=== PATIENT | female | born 1950 | race Caucasian/White ===

== ENCOUNTER 2017-12-01 04:52 | Observation (INO) | payer OTHER ==
[2017-11-12 13:08] VITALS: BMI 47.0
[2017-11-17 07:12] VITALS: BMI 47.0
[2017-11-23 13:52] VITALS: Ht 142.2 cm; Wt 94.8 kg
--- NOTE | 2017-11-23 14:09 | PAT Medication Instructions ---
Service Date Nov 23, 2017. Current Home Medication List Albuterol Hfa (Ventolin Hfa), 1 PUFFS INH Q6H Alosetron HCl (Alosetron Hydrochloride), 1 TAB PO BID Atorvastatin (Lipitor), 40 MG PO QAM Colestipol Hcl (Colestid), 1 GM PO TID Doxycycline Monohydrate (Monodox), 100 MG PO BID Duloxetine HCl (Cymbalta), 1 CAP PO BID Folic Acid (Folvite), 1 MG PO QAM Methotrexate Sodium (Methotrexate), 1 TAB PO QAM Omeprazole (Prilosec), 40 MG PO QAM Sucralfate (Sucralfate), 1 GM PO BID Trazodone Hcl (Trazodone), 100 MG PO HS [Vitamin D], 1,000 INTER.UNIT PO QAM Medication Instructions For Your Scheduled Surgery -Contact your prescriber for instructions: Methotrexate Sodium (Methotrexate), 1 TAB PO QAM - Hold the following medications 24 hours prior to surgery: Colestipol Hcl (Colestid), 1 GM PO TID - Hold the following medications the morning of surgery: Alosetron HCl (Alosetron Hydrochloride), 1 TAB PO BID Folic Acid (Folvite), 1 MG PO QAM Sucralfate (Sucralfate), 1 GM PO BID - Take the following medications the morning of surgery with a sip of water: Albuterol Hfa (Ventolin Hfa), 1 PUFFS INH Q6H (if needed, and bring it with you to the hospital) Atorvastatin (Lipitor), 40 MG PO QAM Doxycycline Monohydrate (Monodox), 100 MG PO BID Duloxetine HCl (Cymbalta), 1 CAP PO BID Omeprazole (Prilosec), 40 MG PO QAM - Take the following medications as scheduled the night before surgery: Albuterol Hfa (Ventolin Hfa), 1 PUFFS INH Q6H Alosetron HCl (Alosetron Hydrochloride), 1 TAB PO BID Doxycycline Monohydrate (Monodox), 100 MG PO BID Duloxetine HCl (Cymbalta), 1 CAP PO BID Sucralfate (Sucralfate), 1 GM PO BID Trazodone Hcl (Trazodone), 100 MG PO HS [Vitamin D], 1,000 INTER.UNIT PO QAM If you have any questions please call us at [phone] or [phone] or [phone]
--- NOTE | 2017-11-23 15:18 | DIAGNOSTIC IMAGING REPORT ---
CERVICAL SPINE 2 OR 3 VIEWS HISTORY: Preoperative evaluation. Rheumatoid arthritis. Pre-op RA; lateral neutral, flexion, extension COMPARISON: None. FINDINGS: The cervical spine is visualized from C1 through the superior endplate of T1. There is no fracture. No subluxation. Congenital/degenerative fusion of C4-C5. Prevertebral soft tissues and the atlantodens interval are intact.. No evidence for subluxation on a positional basis. C1-C2 complex is stable. IMPRESSION: No fracture or subluxation within the cervical spine. Normal positional alignment of the C1-C2 complex. The above report was generated using voice recognition software. It may contain grammatical, syntax or spelling errors. Electronically signed by: Daniel Vu M.D. 11/23/2017 3:16 PM Dictated Date/Time: 11/23/2017 3:16 PM
[2017-11-23 15:39] LABS: CALCIUM 9.2 mg/dl (8.5-10.1); CREATININE 1.09 mg/dl (0.60-1.20); POTASSIUM 4.7 mmol/L (3.5-5.1)
--- NOTE | 2017-11-24 09:42 | History and Physical ---
History & Physical Date of Service Nov 24, 2017. History & Physical DATE OF SURGERY: December 04, 2017. CHIEF COMPLAINT: Right ankle instability x6 or 7 months. HISTORY OF PRESENT ILLNESS: Patient is a pleasant 67-year-old female, who is here today for preoperative history and physical. She is scheduled to have a right ankle arthroscopy with open modified Brostrom procedure with Dr. Lubin on December 04, 2017. Her surgery is scheduled at the [facility]. She has seen Dr. Lubin for evaluation of her right ankle pain that has been ongoing since April of 2017. She states that she was chasing after her dog at that time when she stepped into a hole and had someone sujit and twist in her ankle. Since that time, she has experienced constant and progressive right ankle pain. She feels that her ankle is frequently giving out and very unstable. She wears an ankle stabilizing brace on it at all times. She also uses a cane to assist with ambulation. She states that her pain is achy constantly, and does have intermittent sharpness throughout the day. She is admits to falling because of the pain and instability of her ankle. She denies any numbness or tingling. States, that she occasionally gets some numbness and tingling in both her hands and her feet, but nothing that has worsened since this injury. She denies any other injuries. She states that she initially got some swelling that has pretty much subsided at this point. She is hopeful that the surgery will "get her life back." PAST MEDICAL HISTORY: 1. Rheumatoid arthritis. 2. Sleep apnea with use of a CPAP machine, although she states she does not use it at home. 3. Paresthesias of her hands and occasionally her feet. 4. History of migraines. 5. Spine, neck, and lower back problems. 6. Acid reflux. 7. Obesity. She states that she has difficulty with waking up from anesthesia. Current medications are: 1. Alosetron 0.5 mg 1 tablet p.o. b.i.d.. 2. Cetrizine 10 mg p.o. daily as-needed for allergies. 3. Vitamin D3 of 1000 international units daily. 4. Colestipol 1 gram p.o. t.i.d. 5. Doxycycline monohydrate 100 mg p.o. b.i.d. 6. Duloxetine 20 mg 2 capsules p.o. daily. 7. Folic acid 1 mg p.o. daily. 8. Methotrexate 2.5 mg 6 tablets p.o. q.7 days. She is unsure of what day she takes this. 9. Omeprazole 40 mg p.o. daily. 10. Sucralfate 1 gram p.o. b.i.d. 11. Trazodone 100 mg p.o. q.h.s. 12. Atorvastatin 40 mg daily. ALLERGIES: 1. PENICILLIN, WHICH CAUSES A RASH AND CAUSED HER TO BE SICK. 2. ADHESIVE TAPE. 3. LATEX, WHICH CAUSES A RASH. PAST SURGICAL HISTORY: 1. She has had a spinal fusion. 2. Placement of spinal cord stimulator. 3. Carpal tunnel release, bilateral wrist. 4. Cervical neck fusion. 5. Right total knee arthroplasty. 6. Cholecystectomy. 7. Tonsillectomy. 8. Hysterectomy. 9. Appendectomy. SOCIAL HISTORY: She denies any smoking, tobacco use, alcohol use, or drug use. Family history is positive for cancer and diabetes. REVIEW OF SYSTEMS: She denies any fevers, chills, or flu-like symptoms. She states that she does have a cough occasionally that she has had for a couple weeks that she cannot get rid of. She denies any hospitalizations. She does have shortness of breath, especially with activity. She does have instability of her ankle frequently, especially if she is not wearing the brace. She does use a cane to assist with ambulation. She denies any lightheadedness, dizziness. She occasionally gets some headaches. She denies any chest pain. She does have issues with anesthesia and concerns for anesthesia about not waking up. She states that she does get some abdominal pain with the reflux. Denies any diarrhea or constipation besides when she eats fatty or greasy foods. She denies any urinary symptoms such as frequency burning or foul- smelling urine. PHYSICAL EXAM: General: She is alert and oriented x3. She is in no acute distress. She is a well-dressed, well-nourished female. Height is 4 feet 8 inches, weight is 210 pounds, BMI is 47. HEENT: Head is atraumatic, normocephalic. Eyes, extraocular movements intact. Pupils are equal, round, and reactive to light. Sclerae are normal. Ears, hearing is grossly normal. TMs are clear with normal light reflex. Nose, nares are patent bilaterally. Normal turbinates. Throat, oropharynx clear. Mucous membranes moist. Good dentition with some hardware. Uvula midline. Neck is supple. No lymphadenopathy. No carotid bruits appreciated. Tolerates range of motion of her neck, and nontender to palpation of her cervical spine. Heart is regular rate and rhythm. Normal S1, S2. No murmurs appreciated. Lungs are clear to auscultation bilaterally. No adventitious sounds. Abdomen is obese, soft, nontender, nondistended. Bowel sounds heard in all 4 quadrants. Exam of her right ankle today shows some mild swelling over the lateral aspect of the ankle and no deformity appreciated. Sensation of her right ankle is intact throughout. Dorsalis pedis and posterior tibial pulses are 2+. Brisk capillary refills. She has full dorsiflexion and plantarflexion, and pain with resisted eversion and inversion of the foot. There is gross ligamentous laxity noted on with the anterior drawer test. She does also have discomfort when performing the anterior drawer. There is tenderness to palpation over the ATFL as well as the CFL. The patient has an antalgic gait favoring her right lower extremity. RADIOLOGY IMAGES: X-ray of the right ankle demonstrate no acute fracture or dislocation. Ankle mortise is well maintained. There is a Chika deformity noted over the posterior calcaneus. There is a plantar bone spur noted over the anterior aspect of the calcaneus as well. No other osseous abnormalities noted. IMPRESSION: Chronic right ankle pain and instability. PLAN: Patient is scheduled for right ankle arthroscopy with open modified Brostrom procedure with Dr. Lubin on December 04, 2017. Risks and complications of surgery were explained to the patient and include, but are not limited to, infection, pain, bleeding, scarring, nerve and blood vessel damage, wound problems, weakness, stiffness, incomplete relief of symptoms, heart attack, blood clots, embolisms, heart attack, stroke, and . All questions were answered and informed consent was obtained by Dr. Lubin. She will have preadmission testing later this week in which we will obtain a preoperative EKG prior to surgery. We will also obtain preoperative medical clearance from her family physician, MALIK De Dios. She was instructed on the usage of CHG cloths prior to surgery. She was given a prescription for Grethel for postoperative pain control. This will be done as an outpatient procedure. She was given a prescription for a walker after surgery. I think that would be the most beneficial for her. She may have also a postoperative boot, but I think she would do best with a walker over crutches. Postoperative course was discussed briefly. She will follow up appropriately in Physical Therapy after surgery as well as in 10-14 days after surgery with Dr. Lubin. All questions were answered today, and they know to call with any further problems, questions , or concerns.
[2017-12-01] VITALS (11 sets, daily range): BP systolic 112–143; BP diastolic 61–83; PULSE 96–109; TEMP 36.5–36.6; O2SAT 90–96
[~2017-12-01] VITALS: Ht 142.2 cm; Wt 94.8 kg
[~2017-12-01 04:52] MED LIST: ATOR-24 PO; COLE1TAB PO; DOXY100C76 PO; DULO-24 PO; FOLI1TAB8 PO; METH2.5T PO; OMEP40CA41 PO; SUCR1TAB PO; TRAZ100T29 PO; VITAMIN D PO; VNTHFA/IN INH; [UNRECOGNIZED DRUG - CODE] PO
[2017-12-01] MEDS ORDERED: CLINDAMYCIN 600 MG/54 ML D5W IV SCH (06:00)
[2017-12-01] MEDS ORDERED: CLINDAMYCIN IV 600 MG in DEXTROSE 5% 50ML 50 ML IV ONE (06:00)
[2017-12-01] MEDS ORDERED: LACTATED RINGER'S 1000ML 1,000 ML IV SCH (06:00)
[2017-12-01] MEDS ORDERED: ROCURONIUM BROMIDE 10 MG/ML 5 ML VIAL IV ONE (06:39)
[2017-12-01] MEDS ORDERED: ONDANSETRON INJ 2 MG/ML 2 ML VIAL ONE (06:39)
[2017-12-01] MEDS ORDERED: PROPOFOL IV EMULSION 10 MG/ML 20 ML VIAL IV ONE ×2 (06:39→09:51)
[2017-12-01] MEDS ORDERED: DEXAMETHASONE SOD INJ 4 MG/ML VIAL ONE ×2 (06:39→07:46)
[2017-12-01] MEDS ORDERED: FENTANYL CITRATE INJ 50 MCG/1 ML 2 ML VIAL ONE ×2 (06:39→10:02)
[2017-12-01] MEDS ORDERED: LIDOCAINE HCL 2% 2 ML VIAL (20MG/ML) ONE (06:39)
[2017-12-01] MEDS ORDERED: MIDAZOLAM HCL 1 MG/ML 2ML VIAL ONE ×2 (06:40)
[2017-12-01] MEDS ORDERED: BUPIVACAINE/EPINEPHRINE 0.5% MPF 1:200,000 10 ML VIAL ONE (06:40)
[2017-12-01] MEDS ORDERED: ROPIVACAINE 0.5% 5 MG/ML 30 ML VIAL ONE (06:40)
--- NOTE | 2017-12-01 06:44 | History & Physical Bridge Note ---
H&P Re-Evaluation Bridge Note: I have examined the patient, reviewed the History & Physical and in the interval since the performance of the History & Physical I have noted the following changes of clinical significance: No changes noted. Surgery Moved to 12/01/17 up at the hospital due to anesthesia concerns and BMI.
[2017-12-01] MEDS ORDERED: HYDR-5688 PO (06:46)
[2017-12-01] MEDS ORDERED: EpINEphrine HCL INJ 1 MG/ML 1ML SYRINGE ONE (07:06)
[2017-12-01] MEDS ORDERED: BUPIVACAINE 0.5 % 5 MG/1 ML MPF 30ML VIAL ONE (07:06)
[2017-12-01] MEDS ORDERED: LIDOCAINE/EPINEPHRINE 1% 20 ML VIAL ONE (07:06)
[2017-12-01] MEDS ORDERED: SUCCINYLCHOLINE CHLORIDE 20 MG/ML 10 ML VIAL IV ONE (08:14)
[2017-12-01] MEDS ORDERED: ATROPINE SULFATE 0.1 MG/ML 5ML SYR IV PRN (08:30)
[2017-12-01] MEDS ORDERED: EpHEDrine SULFATE INJ 50 MG/ML AMP IV PRN (08:30)
[2017-12-01] MEDS ORDERED: HYDROmorphone INJ 1 MG/ML SYR IV PRN (08:30)
[2017-12-01] MEDS ORDERED: FENTANYL CITRATE INJ 50 MCG/1 ML 2 ML VIAL IV PRN (08:30)
[2017-12-01] MEDS ORDERED: ONDANSETRON INJ 2 MG/ML 2 ML VIAL IV PRN ×3 (08:30→14:15)
[2017-12-01] MEDS ORDERED: NEOSTIGMINE METHYLSULFATE 5 MG/5 ML SYR ONE (08:41)
--- NOTE | 2017-12-01 09:51 | [facility] Post Operative Brief Note ---
Immediate Operative Summary Operative Date Dec 01, 2017. Pre-Operative Diagnosis Chronic right ankle pain and instability Post-Operative Diagnosis Chronic Right Ankle Pain and Instability, Synovitis, Chondromalacia of Talus Procedure(s) Performed 1) Right Ankle Open Modified Brostrom Procedure with Internal Brace. 2) Right Ankle Arthroscopy with Extensive Debridement. 3) Right Ankle Arthroscopy with Chondroplasty. 4) Exam under anesthesia. Surgeon Dr. Yordan Lubin Rv Detailer Surgeon(s) Dr. Raghu Fowler Estimated Blood Loss 7ml Findings Consistent with Post-Op Diagnosis Fluids (cc crystalloids) 1200 Specimens none per surgeon Drains None Anesthesia Type General Complication(s) none Disposition Disposition: Recovery Room / PACU (Stable)
[2017-12-01] MEDS ORDERED: ESMOLOL HCL 10 MG/ML 10 ML VIAL ONE (09:55)
--- NOTE | 2017-12-01 09:56 | Discharge Instructions ---
Discharge Instructions Date of Service Dec 01, 2017. Admission Reason for Admission: Right Ankle Instability Discharge Discharge Diagnosis / Problem: Status post right ankle Arthroscopy, lateral ankle stabilization Discharge Goals Goal(s): Decrease discomfort, Improve function, Increase independence Activity Recommendations Activity Limitations: per Instructions/Follow-up section May Resume Sexual Activity: when tolerated Shower/Bathe: may shower/bathe in 3 days Driving or Machine Use: Not while on Narcotics and in boot Weightbearing Status: Right toe touch . Instructions / Follow-Up Instructions / Follow-Up Dr. Lubin 12/17/17 @ 10:45am. PT 12/07/17 @ 10 am. Current Hospital Diet Patient's current hospital diet: Regular Diet Discharge Diet Recommended Diet: Regular Diet Procedures Procedures Performed: 1) Right Ankle Open Modified Brostrom Procedure with Internal Brace. 2) Right Ankle Arthroscopy with Extensive Debridement. 3) Right Ankle Arthroscopy with Chondroplasty. 4) Exam under anesthesia. Pending Studies Studies pending at discharge: no Medical Emergencies . Who to Call and When: Medical Emergencies: If at any time you feel your situation is an emergency, please call 911 immediately. . Non-Emergent Contact Non-Emergency issues call your: Urologist Call Non-Emergent contact if: temperature is above 101.5, your pain is not controlled, wound has increased drainage, wound has increased redness . "Provider Documentation" section prepared by Yordan Lubin. .
--- NOTE | 2017-12-01 09:57 | [facility] Operative Report ---
Operative Report Operative Date Dec 01, 2017. Pre-Operative Diagnosis Chronic right ankle pain and instability Post-Operative Diagnosis Chronic Right Ankle Pain and Instability, Synovitis, Chondromalacia of Talus Procedure(s) Performed 1) Right Ankle Open Modified Brostrom Procedure with Internal Brace. 2) Right Ankle Arthroscopy with Extensive Debridement. 3) Right Ankle Arthroscopy with Chondroplasty. 4) Exam under anesthesia. Surgeon Dr. Yordan Lubin Chip Machine Operator Surgeon(s) Dr. Raghu Fowler Estimated Blood Loss 7ml Findings Significant synovitis right ankle, medial gutter, lateral gutter, anterior gutter, posterior capsule. Outerbridge Type IV changes medial Talar dome 7 x 7 mm. Attenuation ATFL with central split tear. Anterior drawer testing 2-3 mm anterior translation with soft end point. After procedure no anterior translation and firm end point. Fluids 1200 Specimens none per surgeon Drains None Anesthesia Type General Complication(s) none Disposition Recovery Room / PACU (Stable) Indications The patient is a 67-year-old female with long standing chronic right ankle pain and instability, who has CT scan indicating medial Talar dome lesion and lateral ligament injury that has failed conservative treatment. After a lengthy discussion with the patient regarding my above clinical findings as well as their treatment options of continued conservative management versus surgical intervention, they have elected to proceed with surgery. The patient wished to proceed with an ankle arthroscopy with debridement. The risks of procedure were discussed and include but not limited to: Infection, bleeding, nerve damage, continued pain, progression of arthritis, decreased level of activity, failure of the repair, possible need for repeat surgery, and deep vein thrombosis. The patient understood all these instructions and explanations all her questions were satisfactorily addressed. They wish to proceed with surgery and the informed consent was signed. Description of Procedure The patient was taken to the operating placed supine on the operating table. Following induction by anesthesia a multidisciplinary timeout was performed identifying the right lower extremity as the correct and operative limb. A bump was placed under the ipsilateral hip and the right lower extremity was placed in a well leg kim. The patient was prepped and draped in the usual orthopedic sterile fashion. All bony landmarks, as well as the tibialis anterior, and the superficial peroneal nerve branches were identified and marked as well as the planned anteromedial and anterolateral portals, as well as the lateral hockey stick incision. The ankle joint line was also marked. The planned incisions and a ring block of the Sural, superficial and deep peroneal nerves were injected with a 50-50 mixture of 1% lidocaine with epi and half percent Marcaine plain for a total of 20 cc. A spinal needle was placed into the ankle joint through the anteromedial portal and the joint was insufflated with 20 cc of normal saline. The anteromedial portal was created first with the milena and spread technique. There was appropriate backflow noted. A 2.7 mm 30 scope was introduced. Initially there was significant synovitis encountered anteriorly, however this was noted throughout the lateral gutter, anteriorly as well as in the medial gutter, and posterior capsule. This was debrided with mechanical shaver as it was encountered. There was also noted significant injury to the articular cartilage of the Talus anteromedially. There were no loose bodies. The anterolateral portal was created under direct visualization, this was initially used as the working portal and then the portals were switched, to allow removal of the synovitis. The loose articular cartilage was removed with mechanical shaver and curette. The ankle was copiously irrigated. Any excessive fluid was then evacuated from the ankle. At this point our attention was drawn to the repair of the lateral ligaments. The traction was removed as well as the well leg kim. A 6 cm Hockey Stick incision was made to expose the fibula and extensor retinaculum. 2mm of extensor retinaculum was elevated from the Fibula. An arthrotomy was performed. The ATFL was identified and the remaining fibers were also released. The Peroneal tendons were protected throughout. The CFL was intact. A FiberTak was placed anteriorly and inferiorly in the standard fashion in the Fibula. Next a 4.75 mm Swivelock with FiberTapes was placed at the insertion of the ATFL on the Talus in the standard fashion. The ATFL was repaired to the Fibula with the ankle in neutral using the sutures from the FiberTak in a horizontal mattress fashion. The FiberTapes were then placed in a 3.5 mm Swivelock which was placed between the 2 FiberTaks, again with the ankle in neutral and care was taken to not overtighten. The FiberTapes were cut short. The remaining Sutures from the FiberTaks were passed through the retinaculum completing the modified Brostrom, embrocating the extensor retinaculum in a pants over vest fashion. Anterior drawer testing was now stable. The skin was closed with 3-0 Monacryl and Dermabond. This was covered with Sterri strips, 4 x 4's, ABDs, sterile cast padding, Posterior splint in neutral , and an Lm bandage. The sponge and needle counts were correct. Patient was awakened and taken to the recovery room in stable condition. POSTOPERATIVE INSTRUCTIONS: The patient will be allowed non-weightbearing until she obtains cam boot and will then be TTWB for 3 weeks. They were given pain medicine preoperatively. They will follow-up with Dr. Lubin in 10-15 days. They will start PT. Addendum: There were concerns post-operatively by anesthesia about the patient' s low O2 saturation and she will be admitted for observation. I attest to the content of the Intraoperative Record and any orders documented therein. Any exceptions are noted below.
[2017-12-01] MEDS ORDERED: MoRPHine SULFATE 2 MG/ML CARP IV PRN (10:00)
[2017-12-01] MEDS ORDERED: MoRPHine SULFATE 4 MG/ML 1 ML CARP\\VIAL IV PRN (10:00)
[2017-12-01] MEDS ORDERED: OXYCODONE/ACETAMINOPHEN 5-325 TAB PO PRN (10:00)
[2017-12-01] MEDS ORDERED: METOPROLOL TARTRATE 1 MG/ML VIAL ONE (11:42)
[2017-12-01] MEDS ORDERED: NURSING VERBAL MED ORDER ONE (12:00)
[2017-12-01] MEDS ORDERED: ALBUT/IPRATROP 3MG/0.5MG NEB 3 ML VIAL INH ONE (12:15)
[2017-12-01] MEDS ORDERED: ACETAMINOPHEN 325 MG TAB PO PRN (14:15)
[2017-12-01] MEDS ORDERED: ALUMINUM/MAGNESIUM/SIMETH (MAALOX MAX) 30 ML UDC PO PRN (14:15)
[2017-12-01] MEDS ORDERED: MAGNESIUM HYDROXIDE SUSP 30 ML UDC PO PRN (14:15)
--- NOTE | 2017-12-01 14:33 | Medical Consult ---
Consultation Date of Consultation: Dec 01, 2017. Attending Physician: Yordan Lubin MD Reason for Consultation: Post-Operative Management History of Present Illness Ms. Murphy is a 67 y/o female with PMHx of RA on Methotrexate, SAI, COPD/Asthma, and GERD who is S/P R ankle repair on 12/01. Surgery was unremarkable however while in recovery patient was noted to be difficult to arouse after surgery with noted hypoxia of 84%. Patient reports she was slow to come out of anesthesia on previous surgeries as well. Patient was diagnosed with SAI after a sleep study and was prescribed CPAP. She reports that she has not used it because it is broken and would be interested in getting a new one. Patient was previously followed by a professor of geography but currently does not see them. She states she was diagnosed with COPD in the past but denies H/O smoking. States he and parents smoked excessively and had a lot of second hand exposures. She states she only utilizes an Albuterol inhaler taking this twice a day. She recently had influenza approx. 1 month ago and has had intermittent URIs since. States she believes she is on Doxy for respiratory coverage but states she is not very good about knowing what medications she is one and her daughter assists with this. Patient did have some dyspnea with ambulating from bedside toilet to bed but quickly resolved. She is on 2L NC and saturating at 95 % currently. Airways are clear with appropriate aeration and no wheezing. No stridor or pharyngeal edema noted. Past Medical/Surgical History 1. Rheumatoid Arthritis 2. SAI - supposed to be on CPAP 3. GERD 4. COPD/Asthma 5. S/P Spinal Surgery 6. S/P Spinal Cord Stimulator 7. S/P R TKA 8. S/P Tonsillectomy 9. S/P Cholecystectomy 10. S/P Appendectomy 11. S/P Hysterectomy Family History Cancer Diabetes mellitus Social History Smoking Status: Never Smoker Smokeless Tobacco Use: No Alcohol Use: none Drug Use: none Marital Status: Housing Status: lives with family Allergies Coded Allergies: Flu Virus Vaccine (Verified Allergy, Unknown, N/V/HIVES, 12/01/17) Latex (Verified Allergy, Unknown, RASH, 12/01/17) Penicillins (Verified Allergy, Unknown, HIVES, 12/01/17) Pneumococcal Vaccine (Verified Allergy, Unknown, N/V/HIVES, 12/01/17) Current Inpatient Medications Current Inpatient Medications Medications (Trade) Dose Ordered Sig/Alex Route Start Time Stop Time Status Last Admin Dose Admin Lactated Ringer's 1,000 ml @ 15 mls/hr Q24H IV 12/01/17 06:00 12/02/17 05:59 12/01/17 06:04 15 MLS/HR Morphine Sulfate (MoRPHine SULFATE INJ) 2 mg Q2H PRN IV 12/01/17 10:00 12/15/17 09:59 Morphine Sulfate (MoRPHine SULFATE INJ) 4 mg Q2H PRN IV 12/01/17 10:00 12/15/17 09:59 Oxycodone/ Acetaminophen (Percocet 5-325mg Tab) 1-2 TABLETS 1 TABLET ... Q6H PRN PO 12/01/17 10:00 12/15/17 09:59 Ondansetron HCl (Zofran Inj) 4 mg Q4H PRN IV 12/01/17 10:00 12/31/17 09:59 Review of Systems Constitutional: No fever, No chills ENT: + problem reported (hoarseness after surgery), No nasal symptoms, No sore throat, No trouble swallowing Respiratory: + cough, No sputum, No wheezing, No shortness of breath, No hemoptysis Cardiovascular: No chest pain, No palpitations Abdomen: No pain, No nausea, No vomiting, No diarrhea, No constipation Musculoskeletal: No joint pain, No swelling, No calf pain Hematologic / Lymphatic: No abnormal bleeding/bruising Integumentary: No rash Physical Exam Date Time Temp Pulse Resp B/P (MAP) Pulse Ox O2 Delivery O2 Flow Rate FiO2 12/01/17 13:15 36.6 96 22 127/61 96 Nasal Cannula 2 12/01/17 12:45 36.6 99 22 128/63 94 Nasal Cannula 2 12/01/17 12:15 36.6 98 22 112/65 92 Nasal Cannula 2 12/01/17 12:05 36.0 94 27 134/70 95 Nasal Cannula 1 12/01/17 12:02 89 22 84 12/01/17 12:02 89 22 12/01/17 12:01 119/63 12/01/17 11:57 87 24 90 12/01/17 11:57 87 24 3/20/18 11:56 120/65 3/20/18 11:52 26 3/20/18 11:52 90 26 3/20/18 11:51 130/72 3/20/18 11:47 90 24 3/20/18 11:47 91 24 96 3/20/18 11:46 125/77 3/20/18 11:45 102 18 91 Nasal Cannula 0.5 3/20/18 11:43 101 105/76 3/20/18 11:42 106 28 3/20/18 11:42 100 28 3/20/18 11:41 105/76 3/20/18 11:37 104 28 89 3/20/18 11:37 106 28 3/20/18 11:36 109/72 3/20/18 11:32 103 21 83 3/20/18 11:32 104 21 3/20/18 11:31 126/59 3/20/18 11:27 101 29 90 3/20/18 11:27 102 29 3/20/18 11:26 117/75 3/20/18 11:22 101 28 90 3/20/18 11:22 102 28 3/20/18 11:21 125/71 3/20/18 11:17 100 26 3/20/18 11:17 100 26 91 3/20/18 11:16 122/71 3/20/18 11:12 99 24 3/20/18 11:12 98 24 93 3/20/18 11:11 130/70 3/20/18 11:07 102 28 92 3/20/18 11:07 102 28 3/20/18 11:06 109/85 3/20/18 11:02 105 24 3/20/18 11:02 105 24 95 3/20/18 11:01 134/80 3/20/18 10:57 110 24 3/20/18 10:57 110 24 98 3/20/18 10:56 163/84 3/20/18 10:52 107 24 3/20/18 10:52 106 24 96 3/20/18 10:51 158/81 3/20/18 10:50 108 24 97 3/20/18 10:50 109 24 3/20/18 10:46 157/87 3/20/18 10:45 108 20 3/20/18 10:45 108 20 95 3/20/18 10:41 140/87 12/01/17 10:40 104 24 12/01/17 10:40 104 24 96 12/01/17 10:36 142/75 12/01/17 10:35 95 20 12/01/17 10:35 95 20 94 12/01/17 10:31 148/80 12/01/17 10:30 36.0 110 24 142/75 98 Oxymask 10 12/01/17 05:43 36.5 98 20 143/83 (103) 95 Room Air General Appearance: WD/WN, no apparent distress, + obese Head: normocephalic, atraumatic Eyes: sclerae normal ENT: hearing grossly normal, pharynx normal Neck: supple, no adenopathy, no JVD, trachea midline Respiratory/Chest: lungs clear, normal breath sounds, no respiratory distress, no accessory muscle use Cardiovascular: regular rate, rhythm, no gallop, no murmur Abdomen/GI: normal bowel sounds, non tender, soft Extremities/Musculoskelatal: + pertinent finding (R foot and ankle with brace and VAL wrap; good cap refill) Neurologic/Psych: alert, oriented x 3 Skin: normal color, warm/dry Assessment & Plan Ms. Murphy is a 67 y/o female with PMHx of RA on Methotrexate, SAI, COPD/Asthma, and GERD who is S/P R ankle repair on 12/01. S/P R Ankle Arthroscopy and Repair: - Pain management, DVT Prophylaxis, IVF, PT/OT per primary service Hypoxia: - This was likely multifactorial given COPD, SAI, Obesity with likely Hypoventilation Syndrome, and Anesthesia - patient is alert and oriented with supplemental O2 at 2 L currently - no wheezing, stridor, or airway edema - Is supposed to use CPAP but states hers is broken at home and would like a replacement - this was previously prescribed by her Spin Instructor after a sleep study but does not currently follow with them - Will use continuous pulse ox to monitor saturations and will wean O2 to support saturations of 90% or greater; given co-morbidities she may even live down in the high 80s especially with sleepy but will monitor as her degree of COPD is unknown - States she thinks she is on Doxy for respiratory coverage for recent URI - will continue - Hold her Albuterol inhaler and use Duonebs while awake - can be D/Cd on home inhaler RA: - Methotrexate 2.5 mg daily except Thursday GERD: - Sucralfate 1 g BID and convert Prilosec to Protonix 40 mg daily HLD: - Atorvastatin 40 mg daily Depression: - Cymbalta 20 mg BID Disposition: - Continue to wean O2 as tolerated as patient is not on supplemental O2 at baseline and likely D/C'd tomorrow as long as no changes in clinical status PA Physician Supervision Note: I interviewed and examined the patient. Discussed with Tesha Guan PAC and agree with findings and plan as documented in the note. Any exceptions or clarifications are listed here: None We are called urgently by Dr. Daisy Harp anesthesiologist in the postoperative area the patient was having persistent hypoxia with no previous history of requiring oxygen. She does have a history of previously having some COPD and she is morbidly obese which likely impacts her breathing. The patient otherwise was hemodynamically stable. During the remainder of the afternoon the patient continually improved to the point where during evaluation by myself the patient did not require oxygen sitting and speaking in her room. Due to the patient's previous history with a issues postoperatively with breathing will observe the patient overnight on orthopedic service and evaluate and with a continuous pulse ox Patient's vital signs are stable including her oxygen sat, cardiac exam is regular lungs are clear with good air movement she is awake alert appropriate Likely transient hypoxia related to anesthesia compounded by morbid obesity and previous history of COPD all are improving will maintain her home medications and conservatively observe her overnight
[2017-12-01] MEDS ORDERED: POLYETHYLENE (MIRALAX) 17 GM PACK PO PRN (14:45)
[2017-12-01] MEDS ORDERED: IV FLUIDS COMPLETED PRN (15:15)
[2017-12-01] MEDS ORDERED: ALBUTEROL HFA 8 GM INHALER INH SCH (18:00)
[2017-12-01] MEDS: DOXYCYCLINE HYCLATE 100 MG CAP PO SCH (19:37)
[2017-12-01] MEDS: DULOXETINE HCL 20 MG CAP PO SCH (19:37)
[2017-12-01] MEDS: SUCRALFATE 1 GM TAB PO SCH (19:38)
[2017-12-01] MEDS: ALBUT/IPRATROP 3MG/0.5MG NEB 3 ML VIAL INH SCH (19:52)
[2017-12-01] MEDS ORDERED: CHLORASEPTIC 1.4% SOLN 180 ML BTL MT PRN (20:00)
--- NOTE | 2017-12-01 20:00 | Anesthesiology Progress Note ---
Anesthesia Post Op Note Date & Time Dec 01, 2017 at 19:46 Vital Signs Pain Intensity: 0 Vital Signs Past 12 Hours Date Time Temp Pulse Resp B/P (MAP) Pulse Ox O2 Delivery O2 Flow Rate FiO2 12/01/17 16:58 36.6 109 20 126/73 (90) 95 Nasal Cannula 2.0 12/01/17 15:15 36.6 99 22 120/65 94 Nasal Cannula 2 12/01/17 14:15 36.5 98 22 128/67 95 Nasal Cannula 2 12/01/17 13:15 36.6 96 22 127/61 96 Nasal Cannula 2 12/01/17 12:45 36.6 99 22 128/63 94 Nasal Cannula 2 12/01/17 12:15 36.6 98 22 112/65 92 Nasal Cannula 2 12/01/17 12:05 36.0 94 27 134/70 95 Nasal Cannula 1 12/01/17 12:02 89 22 84 12/01/17 12:02 89 22 12/01/17 12:01 119/63 12/01/17 11:57 87 24 90 12/01/17 11:57 87 24 12/01/17 11:56 120/65 12/01/17 11:52 26 12/01/17 11:52 90 26 12/01/17 11:51 130/72 12/01/17 11:47 90 24 12/01/17 11:47 91 24 96 12/01/17 11:46 125/77 12/01/17 11:45 102 18 91 Nasal Cannula 0.5 12/01/17 11:43 101 105/76 12/01/17 11:42 106 28 12/01/17 11:42 100 28 12/01/17 11:41 105/76 12/01/17 11:37 104 28 89 12/01/17 11:37 106 28 12/01/17 11:36 109/72 12/01/17 11:32 103 21 83 12/01/17 11:32 104 21 12/01/17 11:31 126/59 12/01/17 11:27 101 29 90 12/01/17 11:27 102 29 12/01/17 11:26 117/75 12/01/17 11:22 101 28 90 12/01/17 11:22 102 28 12/01/17 11:21 125/71 12/01/17 11:17 100 26 12/01/17 11:17 100 26 91 12/01/17 11:16 122/71 12/01/17 11:12 99 24 12/01/17 11:12 98 24 93 12/01/17 11:11 130/70 12/01/17 11:07 102 28 92 12/01/17 11:07 102 28 12/01/17 11:06 109/85 12/01/17 11:02 105 24 12/01/17 11:02 105 24 95 12/01/17 11:01 134/80 12/01/17 10:57 110 24 12/01/17 10:57 110 24 98 12/01/17 10:56 163/84 12/01/17 10:52 107 24 12/01/17 10:52 106 24 96 12/01/17 10:51 158/81 12/01/17 10:50 108 24 97 12/01/17 10:50 109 24 12/01/17 10:46 157/87 12/01/17 10:45 108 20 12/01/17 10:45 108 20 95 12/01/17 10:41 140/87 12/01/17 10:40 104 24 12/01/17 10:40 104 24 96 12/01/17 10:36 142/75 12/01/17 10:35 95 20 12/01/17 10:35 95 20 94 12/01/17 10:31 148/80 12/01/17 10:30 36.0 110 24 142/75 98 Oxymask 10 Notes Mental Status: alert / awake / arousable, participated in evaluation Pt Amnestic to Procedure: Yes Nausea / Vomiting: adequately controlled Pain: adequately controlled Airway Patency, RR, SpO2: stable & adequate BP & HR: stable & adequate Hydration State: stable & adequate Anesthetic Complications: no major complications apparent The patient is a 67 y/o female with a h/o COPD, SAI on CPAP, GERD, RA and morbid obesity s/o R ankle arthroscopy with Dr. Lubin. Preoperatively, the patient's room air oxygen saturation ranged from 88 to 95%. Her room air oxygen saturation in preop clinic was found to be 90%. The patient stated that her oxygen saturation has been low for some time now and that her PCP has been aware but that she has not been placed on home oxygen The patient never smoked but has a significant exposure to second hand smoke. She is not very compliant with her CPAP. Preop CXR was unremarkable for any acute processes. On exam, the patient's lungs were clear to auscultation. I informed the patient and her family preoperatively that due her COPD and low preoperative saturations that she may require admission overnight postoperatively. She was agreeable. Intraoperatively the patient did well under GA with popliteal nerve block. In recovery, she was saturating 95-96% on 2L, however she would desaturate to 85 % when placed on room air. She was given an incentive spirometer and was able to take greater than1L breaths. She was also given and Duoneb treatment. The patient was taken to phase II recovery in an attempt to wean her oxygen once she was more awake. The patient was awake, but was still not able to wean from oxygen likely due to her baseline COPD, morbid obesity and residual effects from anesthesia therefore Dr. Hassan was consulted for further management. The patient was admitted overnight for observation on continuous pulse oximetry.
[2017-12-01] MEDS: NYSTATIN SUSP 500,000 U/5 ML UDC PO SCH (20:24)
[2017-12-01] MEDS: TRAZODONE HCL 100 MG TAB PO SCH (21:12)
[2017-12-01] MEDS: COLESTIPOL HCL 1 GM TAB PO SCH (21:12)
[2017-12-01] MEDS: HYDROCODONE/ACETAMIN 5/325MG TAB PO PRN (21:15)
[2017-12-02] VITALS (9 sets, daily range): BP systolic 113–137; BP diastolic 68–88; PULSE 95–109; TEMP 36.3–36.6; O2SAT 90–96
[2017-12-02] MEDS: ALBUT/IPRATROP 3MG/0.5MG NEB 3 ML VIAL INH SCH ×3 (07:11→19:35)
[2017-12-02] MEDS: PANTOprazole SOD 40 MG TAB PO SCH (07:57)
[2017-12-02] MEDS: COLESTIPOL HCL 1 GM TAB PO SCH ×3 (07:57→21:46)
[2017-12-02] MEDS: DULOXETINE HCL 20 MG CAP PO SCH ×2 (07:57→20:37)
[2017-12-02] MEDS: ATORVASTATIN 40 MG TAB PO SCH (07:57)
[2017-12-02] MEDS: SUCRALFATE 1 GM TAB PO SCH ×2 (07:57→20:36)
[2017-12-02] MEDS: NYSTATIN SUSP 500,000 U/5 ML UDC PO SCH ×4 (07:57→20:37)
[2017-12-02] MEDS: DOXYCYCLINE HYCLATE 100 MG CAP PO SCH ×2 (07:58→20:36)
[2017-12-02] MEDS: HYDROCODONE/ACETAMIN 5/325MG TAB PO PRN ×3 (07:59→20:38)
[2017-12-02] MEDS: METHOTREXATE 2.5 MG TAB PO SCH (08:00)
--- NOTE | 2017-12-02 08:36 | Orthopedic Progress Note ---
Orthopedic Progress Note Date of Service Dec 02, 2017. Subjective Post OP Day: 1 Reports: feeling well, pain controlled w PO medications, Denies: complaints, chest pain, SOB, nausea / vomiting, light headedness, calf pain Additional Notes: States that she slept well with the CPAP last evening. She states she has one at home, but she doesn't use it and will "get it out" when she gets home. She was out of bed, states she was hopping around on 1 foot using whatever in the room she could to hold on to. Objective calves soft nontender, splint C/D/I, capillary refill less than 2 sec., dressing C/D/I, A&O x3, toes mobile Splint comfortable. O2 in place - 2 L Date Time Temp Pulse Resp B/P (MAP) Pulse Ox O2 Delivery O2 Flow Rate FiO2 12/02/17 07:33 36.3 98 20 137/88 (104) 95 CPAP 3.0 12/02/17 07:11 104 18 95 BiPAP/CPAP 3.0 12/02/17 00:00 90 Nasal Cannula 3.0 CPAP 12/01/17 23:17 36.6 105 18 122/72 (89) 93 BiPAP 12/01/17 22:35 2.0 12/01/17 20:00 90 Nasal Cannula 2.0 CPAP 12/01/17 19:52 109 18 94 Nasal Cannula 2.0 12/01/17 16:58 36.6 109 20 126/73 (90) 95 Nasal Cannula 2.0 12/01/17 15:15 36.6 99 22 120/65 94 Nasal Cannula 2 12/01/17 14:15 36.5 98 22 128/67 95 Nasal Cannula 2 12/01/17 13:15 36.6 96 22 127/61 96 Nasal Cannula 2 12/01/17 12:45 36.6 99 22 128/63 94 Nasal Cannula 2 12/01/17 12:15 36.6 98 22 112/65 92 Nasal Cannula 2 12/01/17 12:05 36.0 94 27 134/70 95 Nasal Cannula 1 12/01/17 12:02 89 22 84 12/01/17 12:02 89 22 12/01/17 12:01 119/63 12/01/17 11:57 87 24 90 3/20/18 11:57 87 24 3/20/18 11:56 120/65 3/20/18 11:52 26 3/20/18 11:52 90 26 3/20/18 11:51 130/72 3/20/18 11:47 90 24 3/20/18 11:47 91 24 96 3/20/18 11:46 125/77 3/20/18 11:45 102 18 91 Nasal Cannula 0.5 320/18 11:43 101 105/76 3/20/18 11:42 106 28 3/20/18 11:42 100 28 3/20/18 11:41 105/76 3/20/18 11:37 104 28 89 3/20/18 11:37 106 28 3/20/18 11:36 109/72 3/20/18 11:32 103 21 83 3/20/18 11:32 104 21 3/20/18 11:31 126/59 3/20/18 11:27 101 29 90 3/20/18 11:27 102 29 3/20/18 11:26 117/75 3/20/18 11:22 101 28 90 3/20/18 11:22 102 28 3/20/18 11:21 125/71 3/20/18 11:17 100 26 3/20/18 11:17 100 26 91 3/20/18 11:16 122/71 3/20/18 11:12 99 24 3/20/18 11:12 98 24 93 3/20/18 11:11 130/70 3/20/18 11:07 102 28 92 3/20/18 11:07 102 28 3/20/18 11:06 109/85 3/20/18 11:02 105 24 3/20/18 11:02 105 24 95 3/20/18 11:01 134/80 3/20/18 10:57 110 24 3/20/18 10:57 110 24 98 3/20/18 10:56 163/84 3/20/18 10:52 107 24 3/20/18 10:52 106 24 96 3/20/18 10:51 158/81 3/20/18 10:50 108 24 97 3/20/18 10:50 109 24 3/20/18 10:46 157/87 3/20/18 10:45 108 20 3/20/18 10:45 108 20 95 12/01/17 10:41 140/87 12/01/17 10:40 104 24 12/01/17 10:40 104 24 96 12/01/17 10:36 142/75 12/01/17 10:35 95 20 12/01/17 10:35 95 20 94 12/01/17 10:31 148/80 12/01/17 10:30 36.0 110 24 142/75 98 Oxymask 10 Assessment & Plan Assessment: POD 1 - s/p right ankle arthroscopy; modified Brostrom procedure for instability Plan: NWB RLE - please have patient use walker to assist with ambulation. Her daughter is picking up a knee scooter today for home use. Ice and elevate right lower extremity to relieve pain and swelling. Keep splint on at all times, keep clean and dry. Able to wiggle toes and do knee range of motion Regular diet as ordered O2 as per medicine and patient's O2 sats Appreciate medicine assistance Will discuss findings with Dr. Lubin Patient requesting that we call her daughter to give her an update as she had to leave before the procedure had been finished - daughter called [facility], and if medically stable with oxygen saturation. She has pain medication script already filled at home. I, Dr. Lubin, saw and examined the patient and discussed the management with my PA. I reviewed my PAs note and agree with the documented findings and the plan of care I developed. Discharge Planning Discharge Planning: home with oppt Pain Management: [place] DVT Prophylaxis: TEDs Therapy: Physical Therapy
--- NOTE | 2017-12-02 11:08 | Anesthesiology Progress Note ---
Anesthesia Post Op Note Date & Time Dec 02, 2017 at 11:07 Vital Signs Pain Intensity: 6.0 Vital Signs Past 12 Hours Date Time Temp Pulse Resp B/P (MAP) Pulse Ox O2 Delivery O2 Flow Rate FiO2 12/02/17 08:00 Nasal Cannula 2.0 12/02/17 07:33 36.3 98 20 137/88 (104) 95 CPAP 3.0 12/02/17 07:11 104 18 95 BiPAP/CPAP 3.0 12/02/17 00:00 90 Nasal Cannula 3.0 CPAP 12/01/17 23:17 36.6 105 18 122/72 (89) 93 BiPAP Notes Mental Status: alert / awake / arousable, participated in evaluation Pt Amnestic to Procedure: Yes Nausea / Vomiting: adequately controlled Pain: adequately controlled Airway Patency, RR, SpO2: stable & adequate BP & HR: stable & adequate Hydration State: stable & adequate Anesthetic Complications: no major complications apparent patient said it took her a long time to wake up yesterday. She had to stay on O2 via N/C for the day and had to use BIPAP overnight (not new, she reported she is supposed to use a bipap every night but is noncompliant).
--- NOTE | 2017-12-02 13:53 | Discharge Instructions ---
Discharge Instructions Date of Service Dec 02, 2017. Admission Reason for Admission: Right Ankle Instability Discharge Discharge Diagnosis / Problem: Right ankle instability Discharge Goals Goal(s): Decrease discomfort, Improve function, Increase independence Activity Recommendations Activity Level: Assistance Required (walker or knee scooter) Therapies: Physical Therapy, Weight Bearing Status (non weight bearing Right lower extremity) Weightbearing Status: Right non-weightbearing . Additional Information Patient informed of condition: Yes Advance Directives: No DNR: No Level of Care: Acute Rehab Communicable Disease: No Prognosis: Stable Oxygen at (LPM): 2L [place] Catheter: No Instructions / Follow-Up Instructions / Follow-Up DIET: * Resume previous diet. MEDICATIONS: * Please take your prescriptions as instructed at your pre-op appointment and/ or see medication discharge instructions listed above. * If concerns develop, call your physician's office at . SPECIAL CARE INSTRUCTIONS: * Ice/Elevate as needed for pain and swelling * Keep dressing clean, dry, intact. Keep splint on at all times. * DO NOT PUT ANY WEIGHT ON YOUR RIGHT LEG * Use walker or knee scooter to assist with ambulation. * Allowed for ROM of your right knee and right hip as tolerated. Wiggle toes frequently. * Your surgical extremity may be discolored due to prepping agents used on the skin. A bluish-green tint is a normal variant and should not cause alarm. Call your doctor at [phone] if: * Temperature above 101 degrees * Pain not relieved by pain medicine ordered * There is increased drainage or redness from any incision * You have any unanswered questions, problems or concerns. FOLLOW UP VISIT: * If not already scheduled, please call the office at to schedule a follow-up appointment. * You have a follow up appointment at [facility] on 12/07/17 at 10: 00 a.m. for a boot application and wound check. Current Hospital Diet Patient's current hospital diet: Regular Diet Discharge Diet Recommended Diet: Regular Diet Procedures Procedures Performed: 1) Right Ankle Open Modified Brostrom Procedure with Internal Brace. 2) Right Ankle Arthroscopy with Extensive Debridement. 3) Right Ankle Arthroscopy with Chondroplasty. 4) Exam under anesthesia. Pending Studies Studies pending at discharge: no Physician Orders On Transfer Special Precautions: NWB RLE; allowed to wiggle toes, full ROM right knee Keep splint on at all times. Dressing Changes: Keep splint on at all times. Vital Signs: per routine Medical Emergencies . Who to Call and When: Medical Emergencies: If at any time you feel your situation is an emergency, please call 911 immediately. . Non-Emergent Contact Non-Emergency issues call your: Surgeon Call Non-Emergent contact if: temperature is above 101, your pain is not controlled, wound has increased redness, wound has increased pain, you have any medication questions . . "Provider Documentation" section prepared by Oma Castellon. . Core Measure Problem Core Measures: None [place] Drug Monitoring Program Search Results: patient reviewed within database, no issues identified
[2017-12-02] MEDS: TRAZODONE HCL 100 MG TAB PO SCH (20:37)
[2017-12-03] MEDS: ALBUT/IPRATROP 3MG/0.5MG NEB 3 ML VIAL INH SCH ×2 (07:16→14:26)
[2017-12-03 07:17] VITALS: PULSE 96; O2SAT 96
[2017-12-03 07:54] VITALS: BP 137/79; PULSE 93; TEMP 36.6
[2017-12-03] MEDS: COLESTIPOL HCL 1 GM TAB PO SCH ×2 (08:18→13:58)
[2017-12-03] MEDS: ATORVASTATIN 40 MG TAB PO SCH (08:18)
[2017-12-03] MEDS: PANTOprazole SOD 40 MG TAB PO SCH (08:18)
[2017-12-03] MEDS: NYSTATIN SUSP 500,000 U/5 ML UDC PO SCH ×2 (08:18→12:27)
[2017-12-03] MEDS: HYDROCODONE/ACETAMIN 5/325MG TAB PO PRN ×2 (08:19→13:58)
[2017-12-03] MEDS: METHOTREXATE 2.5 MG TAB PO SCH (08:19)
[2017-12-03] MEDS: DOXYCYCLINE HYCLATE 100 MG CAP PO SCH (09:22)
[2017-12-03] MEDS: SUCRALFATE 1 GM TAB PO SCH (09:22)
[2017-12-03] MEDS: DULOXETINE HCL 20 MG CAP PO SCH (09:22)
--- NOTE | 2017-12-03 10:24 | Orthopedic Progress Note ---
Orthopedic Progress Note Date of Service Dec 03, 2017. Subjective Post OP Day: 2 Reports: feeling well, pain controlled w PO medications, Denies: complaints, chest pain, SOB, nausea / vomiting, light headedness, calf pain, using EGG GRADER Additional Notes: Again use CPAP machine last evening Objective N/V intact, splint C/D/I, capillary refill less than 2 sec., dressing C/D/I, A& O x3, toes mobile, CMS intact Date Time Temp Pulse Resp B/P (MAP) Pulse Ox O2 Delivery O2 Flow Rate FiO2 12/03/17 07:54 36.6 93 20 137/79 (98) 12/03/17 07:17 96 15 96 Nasal Cannula 2.0 12/03/17 00:00 CPAP 12/02/17 23:33 36.6 100 22 113/69 (84) 93 CPAP 2.0 12/02/17 23:17 92 12/02/17 19:35 98 16 94 Nasal Cannula 2.0 12/02/17 15:45 Nasal Cannula 2.0 12/02/17 15:10 36.5 109 20 116/69 (85) 95 Nasal Cannula 2.0 12/02/17 14:15 95 16 96 Nasal Cannula 1.0 12/02/17 13:48 Nasal Cannula 1.0 Assessment & Plan Assessment: POD 2 - s/p right ankle arthroscopy; modified Brostrom procedure for instability Plan: NWB RLE - please have patient use walker to assist with ambulation. Ice and elevate right lower extremity to relieve pain and swelling. Keep splint on at all times, keep clean and dry. Able to wiggle toes and do knee range of motion Regular diet as ordered O2 as per medicine and patient's O2 sats Appreciate medicine assistance Will discuss findings with Dr. Lubin Discharge to [facility] later today. She has pain medication script already filled at home. Discharge Planning Discharge Planning: home with oppt Pain Management: [place] DVT Prophylaxis: TEDs Therapy: Physical Therapy
[2017-12-03 11:12] VITALS: BP 137/79; PULSE 93; TEMP 36.6; O2SAT 96
[2017-12-03 11:27] VITALS: O2SAT 94
[2017-12-03 14:26] VITALS: PULSE 94; O2SAT 92
[2017-12-03 14:59] VITALS: BP 113/66; PULSE 114; TEMP 36.8; O2SAT 91
--- NOTE | 2017-12-03 16:35 | Discharge Summary ---
Discharge Summary Date of Service Dec 02, 2017. Discharge Summary Admission Date: Dec 01, 2017 at 14:21 Discharge Date: Dec 02, 2017 Discharge Disposition: Home Principal Diagnosis: Right ankle instability Procedures: Right ankle arthroscopy, chondroplasty, modified Brostrm procedure Consultations: Hospitalist Pending Studies/Follow-Up: You have physical therapy appointment scheduled on December 07, 2017 at 10 AM You have a follow-up appointment scheduled with Dr. Lubin on December 17, 2017 at 9 :45 AM Please call your family doctor to scheduled follow-up appointment after hospital admission. Medication Reconciliation New Medications: Hydrocodone/Acetaminophen 5MG/325MG ([place] 5MG/325MG) Tab 1 TABLET PO Q6HWA PRN for Pain, #30 TAB PRN PAIN Continued Medications: Albuterol Hfa (Ventolin Hfa) 200 Puffs/88961 Mcg Aers 1 PUFFS INH Q6H for Shortness of Breath Alosetron HCl (Alosetron Hydrochloride) 0.5 Mg Tab 1 TAB PO BID Atorvastatin (Lipitor) 40 Mg Tab 40 MG PO QAM, TAB Colestipol Hcl (Colestid) 1 Gm Tab 1 GM PO TID, TAB Doxycycline Monohydrate (Monodox) 100 Mg Cap 100 MG PO BID, CAP Duloxetine HCl (Cymbalta) 20 Mg Cap 1 CAP PO BID, CAP Folic Acid (Folvite) 1 Mg Tab 1 MG PO QAM, TAB Methotrexate Sodium (Methotrexate) 2.5 Mg Tab 1 TAB PO QAM, TAB 1 Refill TAKES 6 DAYS A WEEK - 1 TAB EVERY DAY EXCEPT THURSDAY Omeprazole (Prilosec) 40 Mg Cap 40 MG PO QAM, CAP Sucralfate (Sucralfate) 1 Gm Tab 1 GM PO BID, TAB Trazodone Hcl (Trazodone) 100 Mg Tab 100 MG PO HS, TAB [Vitamin D] () 1000 INTER.UNIT PO QAM Hospital Course Patient is a 67-year-old female, who underwent right ankle arthroscopy, chondroplasty, modified Brostrm procedure with Dr. Lubin on January 01, 2018 at the [facility]. Procedure was done with general anesthesia. She was given 600 mg of IV Cleocin for surgical prophylaxis. She tolerated the procedure well without any intraoperative complications. Postoperatively she developed some decreased saturation and was seen and evaluated by the hospitalist service. Was recommended and determined that she would need overnight observation to evaluate her oxygen saturation. Postoperatively, she was allowed out of bed, nonweightbearing right lower extremity with the assistance of a walker. She was ordered regular diet. She was placed on oxygen via nasal cannula. She is to CPAP machine through the night. Pain medication was prescribed and her pain was well-controlled with oral medication. Her right foot is elevated and ice was applied. She tolerated a regular diet. She did not develop any postoperative complications besides some decreased oxygen saturation. It was determined that this is most likely where she is all the time. She was followed by the hospitalist service during her inpatient stay. Physical therapy and occupational therapy consult was obtained. She was seen and evaluated by Case Management/data services developer. Patient requested inpatient rehab due to her living alone. Referral made and she was accepted to [facility]. She needed to continue to O2 while [facility] and she would be weaned from the O2 there. She was discharged to [facility] on December 03, 2017. She was safe for discharge from a medical standpoint. Discharge instructions were provided. All questions were answered. Total time spent on discharge = This includes examination of the patient, discharge planning, medication reconciliation, and communication with other providers. Discharge Instructions Discharge Instructions Date of Service Dec 02, 2017. Admission Reason for Admission: Right Ankle Instability Discharge Discharge Diagnosis / Problem: Right ankle instability Discharge Goals Goal(s): Decrease discomfort, Improve function, Increase independence Activity Recommendations Activity Level: Assistance Required (walker or knee scooter) Therapies: Physical Therapy, Weight Bearing Status (non weight bearing Right lower extremity) Weightbearing Status: Right non-weightbearing . Additional Information Patient informed of condition: Yes Advance Directives: No DNR: No Level of Care: Acute Rehab Communicable Disease: No Prognosis: Stable Oxygen at (LPM): 2L [place] Catheter: No Instructions / Follow-Up Instructions / Follow-Up DIET: * Resume previous diet. MEDICATIONS: * Please take your prescriptions as instructed at your pre-op appointment and/ or see medication discharge instructions listed above. * If concerns develop, call your physician's office at . SPECIAL CARE INSTRUCTIONS: * Ice/Elevate as needed for pain and swelling * Keep dressing clean, dry, intact. Keep splint on at all times. * DO NOT PUT ANY WEIGHT ON YOUR RIGHT LEG * Use walker or knee scooter to assist with ambulation. * Allowed for ROM of your right knee and right hip as tolerated. Wiggle toes frequently. * Your surgical extremity may be discolored due to prepping agents used on the skin. A bluish-green tint is a normal variant and should not cause alarm. Call your doctor at [phone] if: * Temperature above 101 degrees * Pain not relieved by pain medicine ordered * There is increased drainage or redness from any incision * You have any unanswered questions, problems or concerns. FOLLOW UP VISIT: * If not already scheduled, please call the office at to schedule a follow-up appointment. * You have a follow up appointment at [facility] on 12/07/17 at 10: 00 a.m. for a boot application and wound check. Current Hospital Diet Patient's current hospital diet: Regular Diet Discharge Diet Recommended Diet: Regular Diet Procedures Procedures Performed: 1) Right Ankle Open Modified Brostrom Procedure with Internal Brace. 2) Right Ankle Arthroscopy with Extensive Debridement. 3) Right Ankle Arthroscopy with Chondroplasty. 4) Exam under anesthesia. Pending Studies Studies pending at discharge: no Physician Orders On Transfer Special Precautions: NWB RLE; allowed to wiggle toes, full ROM right knee Keep splint on at all times. Dressing Changes: Keep splint on at all times. Vital Signs: per routine Medical Emergencies . Who to Call and When: Medical Emergencies: If at any time you feel your situation is an emergency, please call 911 immediately. . Non-Emergent Contact Non-Emergency issues call your: Surgeon Call Non-Emergent contact if: temperature is above 101, your pain is not controlled, wound has increased redness, wound has increased pain, you have any medication questions . . "Provider Documentation" section prepared by Oma Castellon. . Core Measure Problem Core Measures: None [place] Drug Monitoring Program Search Results: patient reviewed within database, no issues identified
[2017-12-04] MEDS ORDERED: LACTATED RINGER'S 1000ML 1,000 ML IV SCH (06:00)
[2017-12-04] MEDS ORDERED: CLINDAMYCIN IV 600 MG in DEXTROSE 5% 50ML 50 ML IV ONE (06:00)
== END 2017-12-03 16:19 ==
LOC: C.ACU 04:52 → C.MS4W 14:21 → ENRESERV 16:16
PROVIDERS: ADMIT Orthopaedic Surgery Sports Medicine; ATTEND Orthopaedic Surgery Sports Medicine
DX: M25.371 Other instability, right ankle (principal); M06.9 Rheumatoid arthritis, unspecified; G47.33 Obstructive sleep apnea (adult) (pediatric); K76.0 Fatty (change of) liver, not elsewhere classified; K21.9 Gastro-esophageal reflux disease without esophagitis; F32.9 Major depressive disorder, single episode, unspecified; J44.9 Chronic obstructive pulmonary disease, unspecified; E66.01 Morbid (severe) obesity due to excess calories; Z68.42 Body mass index [BMI] 45.0-49.9, adult; Z88.0 Allergy status to penicillin; Z96.651 Presence of right artificial knee joint; Z91.19 Patient's noncompliance with other medical treatment and regimen; Z90.49 Acquired absence of other specified parts of digestive tract; Z90.710 Acquired absence of both cervix and uterus; Z91.040 Latex allergy status; Z88.7 Allergy status to serum and vaccine; Z77.22 Contact with and (suspected) exposure to environmental tobacco smoke (acute) (chronic); Z98.1 Arthrodesis status; Z83.3 Family history of diabetes mellitus